=== PATIENT | female | born 1995 | race Caucasian/White ===

== ENCOUNTER 2016-11-11 17:41 | Emergency (ER) | payer MEDICAID ==
--- NOTE | 2016-11-27 08:09 | ER ---
ADMIT: 11/11/2016 RM/LOC: ER [facility] MR#: [id number] [address] [place], [place] [id number] ROSALIO RUIZ [address] [address] Emergency Room Report SEX: F AGE: 21 : 1995 DATE: 11/11/2016 HISTORY OF PRESENT ILLNESS: This is a 21-year-old female, 12 weeks . No vaginal bleeding, but she was watching TV today at home and she had a syncopal episode, she said. She vomited. She has had a past medical history of urinary tract infection diagnosed last week and started on Cipro. Blood pressure 114/68, pulse 85, respirations 20, temp is 97, O2 sats 100%. She is taking vitamins and Cipro for UTI. I did ask her who had given her the Cipro. She said it was Dr. Troy. She sees him in town from [place]. Her physical examination is pretty good. I mean, she is not orthostatic. Blood pressure is good sitting, lying down, and standing up. Past medical history negative. On physical examination, she has no distress at this time. She did not hit her head or had any injury when she passed out because she says she was sitting and she is not postictal either. This is kind of like an interesting case because she says she was watching TV. She had eaten and then suddenly she kind of passed out on her sister twice. So, I am not sure about the story here, but I did do blood sugars on her. Bedside glucose was 70. Her heart tone was 184. She says she has not been eating much because she feels like she has to throw up. So, I went ahead and did a urine, but the urine came back contaminated, which we are not going to be able to culture. CLINICAL IMPRESSION: 1. Hypoglycemic episode. 2. . DISPOSITION: The patient was advised to follow up with Dr. Troy tomorrow, give him a call. I am still questioning the Cipro, but she started it 3 days ago and the doctor who gave it to her was her [employer]. So, I went ahead and I gave her some Zofran a couple of doses and encouraged her to use Unisom and B6 which is the component of Diclegis. Continue prenatals. The patient verbalized understanding and looks and feels much better. AUGUSTO Robles / Cisco Bright MD / modl JOB #: [id number] CC: Cisco Bright MD, Attending Physician Josef Troy MD, Family Physician
== END 2016-11-11 20:50 | disposition home or self-care (01) ==
LOC: ER 17:41
DX: O99.810 Abnormal glucose complicating pregnancy (principal); E16.2 Hypoglycemia, unspecified; Z3A.12 12 weeks gestation of pregnancy

== ENCOUNTER 2016-12-14 15:20 | Emergency (ER) | payer MEDICAID | END 2016-12-14 17:55 | disposition home or self-care (01) | DX: O23.42 Unspecified infection of urinary tract in pregnancy, second trimester (principal); Z3A.17 17 weeks gestation of pregnancy ==